=== PATIENT | male | born 1945 | race Caucasian/White ===

== ENCOUNTER 2021-01-25 12:24 | Inpatient (IN) ==
[2021-01-25] MEDS ORDERED: AZITHROMYCIN 500 MG in DEXTROSE 5% IN WATER 250 ML IV ONE (12:36)
[2021-01-25] MEDS ORDERED: cefTRIAXone 1 GM in DEXTROSE 5% IN WATER 50 ML IV SCH ×3 (12:45→16:15)
--- NOTE | 2021-01-25 12:47 | Emergency Department Note ---
SOB HPI General Chief Complaint: Recheck/Abnormal Lab/Rx Stated Complaint: low O2 Sat Time Seen by Provider: 01/25/21 12:28 Mode of arrival: ambulatory Limitations: no limitations History of Present Illness HPI Narrative: 75-year-old male was sent over from urgent care clinic after he presented with 6-day history of fevers chills cough productive of clear sputum and shortness of breath. Was found to have a oxygen saturation in the low to mid 80s and was sent to the emergency department by private vehicle. She denies any chest pain. Denies any history of chronic lung disease. He has had fevers and chills up to about 103. His had upper respiratory type infection as well last week but hers resolved quickly. Patient denies tobacco abuse. Thromboembolism. Denies any loss of taste or smell or any recent travel or contact with anybody with confirmed COVID-19. Patient did not get the COVID-19 vaccine. He has history of hypertension hyperlipidemia and diabetes. Loose stools. Also has a history of prostate cancer status post resection. Related Data Home Medications Medication Instructions Recorded Confirmed cholecalciferol (vitamin D3) 125 250 mcg PO QDAY cap 03/12/20 01/25/21 mcg (5,000 unit) capsule Previous Rx's Medication Instructions Recorded imipramine HCl 50 mg tablet 50 mg PO BID #180 tab 11/19/20 losartan 100 mg tablet 100 mg PO QDAY #90 tab 12/03/20 amlodipine 5 mg tablet See Rx Instructions .ROUTE 12/27/20 .COMPLEX #90 tab carvedilol 25 mg tablet See Rx Instructions .ROUTE 12/27/20 .COMPLEX #180 tab pravastatin 40 mg tablet See Rx Instructions .ROUTE 12/27/20 .COMPLEX #90 tab hydrochlorothiazide 12.5 mg tablet 12.5 mg PO QDAY #90 tab 12/28/20 meloxicam 15 mg tablet 15 mg PO QDAY #90 tab 12/28/20 metformin 500 mg tablet 500 mg PO QDAY #90 tab 12/28/20 omeprazole 40 mg capsule,delayed 40 mg PO QDAY #90 cap 12/28/20 release dutasteride 0.5 mg capsule 0.5 mg PO QDAY #90 cap 01/23/21 Allergies Allergy/AdvReac Type Severity Reaction Status Date / Time No Known Drug Allergies Allergy Verified 01/25/21 11:47 Review of Systems ROS ROS Narrative: Narrative: All systems ED: reviewed and negative except as stated. Constitutional: Reports fever and chills Eyes: Denies vision change Cardiovascular: Denies chest pain Respiratory: Reports shortness of breath and cough Gastrointestinal: Reports diarrhea; Denies abdominal pain and vomiting Genitourinary: Denies dysuria, frequency, urgency and hematuria Musculoskeletal: Denies back pain and joint pain Integumentary: Denies rash Neurological: Denies headache and dizziness Psychiatric: Denies anxiety, suicidal thoughts and homicidal thoughts Endocrine: Denies polydipsia and polyuria Hematological/Lymphatic: Denies easy bleeding and easy bruising PFS Narrative Patient History Narrative: Narrative: Medical/Surgical/Family History All Active Problems (Updated 01/25/21 @ 15:01 by Denis Eden MD) Bilateral pneumonia (Acute) Hypoxia (Acute) History of total right knee replacement (Acute) Hypertension (Chronic) Hyperlipidemia (Chronic) Prediabetes (Acute) Prostate cancer (Chronic) Erectile dysfunction (Chronic) Kidney cysts (Chronic) Arthritis (Chronic) Gross hematuria (Chronic) Medicare annual wellness visit, subsequent (Acute) BPH with obstruction/lower urinary tract symptoms (Acute) Prostate cancer (Acute) BAHMAN (stress urinary incontinence), male (Acute) Urge incontinence (Acute) Hx of vasectomy (Acute) Status post surgery (Acute) Hx of prostate biopsy (Acute) History of left knee replacement (Acute) History of hydrocelectomy (Acute) Bladder trabeculation (Chronic) Medical History Arthritis Bladder trabeculation BPH with obstruction/lower urinary tract symptoms BPH without obstruction/lower urinary tract symptoms Erectile dysfunction Gross hematuria Hyperlipidemia Hypertension Hypoxia Kidney cysts Medicare annual wellness visit, subsequent Prediabetes Prostate cancer Surgical History History of hydrocelectomy History of left knee replacement 08/11/20, revised 09/2020 History of total right knee replacement 2016 Dr. Fenton Hx of prostate biopsy 01/15 and 06/2012--prostate ultrasound and biopsy Hx of vasectomy Status post surgery gastric tumor removal Family History none listed Heart problem Social History Smoking Status: Never smoker Alcohol Intake Frequency: does not drink Substance Use: does not use Exam Narrative Narrative: Constitutional: Awake alert no acute distress obese HEENT: Normocephalic, atraumatic PERRLA, EOMI, oral mucosa moist, pharynx clear, TMs clear bilateral Neck: Supple, no lymphadenopathy, no JVD Lungs: Few scattered rhonchi, breathing unlabored, Cardiac: Regular rate and rhythm, normal distal pulses, GI: Soft nontender nondistended no guarding no rebound Musculoskeletal: No tenderness, no deformities, no edema, full range of motion Neuro: Awake alert, cranial nerves II through XII grossly intact, no focal motor or sensory deficits Psychiatric: Normal mood and affect General Limitations: no limitations Course Consultations Consultation #1: Discussed with hospitalist, Dr. Diaz, who agrees to see patient and admit patient. Time: 15:17 Vital Signs Vital signs: Vital Signs Temperature 97.9 F 01/25/21 12:25 Pulse Rate 63 01/25/21 12:25 Respiratory Rate 18 01/25/21 12:25 Blood Pressure 138/62 01/25/21 12:25 Pulse Oximetry (%) 99 01/25/21 12:25 Temperature 97.9 F 01/25/21 12:25 Pulse Rate 60 01/25/21 15:07 Respiratory Rate 18 01/25/21 15:07 Blood Pressure 119/69 01/25/21 15:07 Pulse Oximetry (%) 88 L 01/25/21 15:08 [facility] MDM Narrative Medical decision making narrative: 75-year-old male with 6-day history of fevers chills cough and shortness of breath. Was seen at [facility] earlier prior to arrival here found to be hypoxic with oxygen saturation mid high 80s. Oxygen saturation here is 91% room air currently. Chest x-ray shows bilateral infiltrates. Basic labs CBC was normal CMP unremarkable, lactate was normal. Patient Covid 19 and influenza swab were both negative. This patient has bilateral infiltrates and was hypoxic chest is consistent with pneumonia was given empiric Rocephin and Zithromax and will be admitted for further evaluation. ED findings and recommendation for admission discussed with the patient who is agreeable. Patient discussed with hospitalist, Dr. Diaz who is agreeable to admit the patient. Lab Data Result diagrams: 01/25/21 13:14 01/25/21 13:14 Labs: Lab Results 01/25/21 01/25/21 01/25/21 Range/Units 13:14 13:14 13:14 WBC 4.9 (4.5-11.0) K/mcL RBC 4.89 (4.50-5.90) M/mcL Hgb 14.7 (13.5-16.5) g/dL Hct 44.6 (41.0-55.0) % MCV 91.2 (80.0-100.0) fL MCH 30.1 (26.0-34.0) pg MCHC 33.0 (31.0-36.0) g/dL RDW 14.2 (11.5-14.5) % Plt Count 161 (140-440) K/mcL MPV 9.5 (7.4-10.4) fL VBG Lactic Acid 0.9 (0.5-2.0) mmol/L Sodium 135 (133-145) mmol/L Potassium 4.7 (3.3-5.1) mmol/L Chloride 99 (96-108) mmol/L Carbon Dioxide 26 (22-30) mmol/L Anion Gap 10.0 (8.0-16.0) BUN 18 (8-23) mg/dL Creatinine 1.2 (0.7-1.2) mg/dL GFR Calculation 59 Glucose 106 H (70-105) mg/dL Calcium 8.4 L (8.6-10.4) mg/dL Total Bilirubin 0.6 (0.1-1.0) mg/dL AST 59 H (<40) U/L ALT 54 H (<40) U/L Alkaline Phosphatase 79 (39-117) U/L Troponin T (<0.03) ng/mL NT-Pro-B Natriuret Pep 166.0 H (<125.0) pg/mL Total Protein 6.8 (5.9-8.4) gm/dL Albumin 3.6 (3.2-5.2) gm/dL Globulin 3.2 (2.2-3.7) gm/dL Albumin/Globulin Ratio 1.1 (1.0-2.3) Procalcitonin (<0.10) ng/mL 01/25/21 01/25/21 Range/Units 13:14 13:14 WBC (4.5-11.0) K/mcL RBC (4.50-5.90) M/mcL Hgb (13.5-16.5) g/dL Hct (41.0-55.0) % MCV (80.0-100.0) fL MCH (26.0-34.0) pg MCHC (31.0-36.0) g/dL RDW (11.5-14.5) % Plt Count (140-440) K/mcL MPV (7.4-10.4) fL VBG Lactic Acid (0.5-2.0) mmol/L Sodium (133-145) mmol/L Potassium (3.3-5.1) mmol/L Chloride (96-108) mmol/L Carbon Dioxide (22-30) mmol/L Anion Gap (8.0-16.0) BUN (8-23) mg/dL Creatinine (0.7-1.2) mg/dL GFR Calculation Glucose (70-105) mg/dL Calcium (8.6-10.4) mg/dL Total Bilirubin (0.1-1.0) mg/dL AST (<40) U/L ALT (<40) U/L Alkaline Phosphatase (39-117) U/L Troponin T < 0.01 (<0.03) ng/mL NT-Pro-B Natriuret Pep (<125.0) pg/mL Total Protein (5.9-8.4) gm/dL Albumin (3.2-5.2) gm/dL Globulin (2.2-3.7) gm/dL Albumin/Globulin Ratio (1.0-2.3) Procalcitonin 0.21 H (<0.10) ng/mL ED POC Tests ED POC Tests: KASANDRA - Influenza A Negative KASANDRA - Influenza B Negative KASANDRA - SARS Antigen Negative EKG Data EKG #1: EKG attestation: Yes I reviewed and interpreted this EKG. and Yes There are no EKG findings of acute coronary syndrome EKG results narrative: EKG performed at 1324 shows sinus rhythm rate of 61 first-degree block, left axis deviation no ectopy normal ST segments Discharge Plan Patient/Caregiver Discharge Instructions Pt seen by [facility]/PA only: No Clinical Impression: Bilateral pneumonia, Hypoxia Patient Disposition: Xfer As Inpt ([facility]) Condition: Fair Follow up with: Cassandra Olson DO [Primary Care Provider] - Prescriptions: No Action imipramine HCl 50 mg tablet 50 mg PO BID Qty: 180 RF: 3 losartan 100 mg tablet 100 mg PO QDAY Qty: 90 RF: 1 pravastatin 40 mg tablet See Rx Instructions .ROUTE .COMPLEX Qty: 90 RF: 2 amlodipine 5 mg tablet See Rx Instructions .ROUTE .COMPLEX Qty: 90 RF: 1 carvedilol 25 mg tablet See Rx Instructions .ROUTE .COMPLEX Qty: 180 RF: 1 metformin 500 mg tablet 500 mg PO QDAY Qty: 90 RF: 0 hydrochlorothiazide 12.5 mg tablet 12.5 mg PO QDAY Qty: 90 RF: 0 meloxicam 15 mg tablet 15 mg PO QDAY Qty: 90 RF: 0 omeprazole 40 mg capsule,delayed release(DR/EC) 40 mg PO QDAY Qty: 90 RF: 1 cholecalciferol (vitamin D3) 125 mcg (5,000 unit) capsule 250 mcg PO QDAY RF: 0 dutasteride 0.5 mg capsule 0.5 mg PO QDAY Qty: 90 RF: 5
--- NOTE | 2021-01-25 13:04 | XRay Report ---
HISTORY: Hypoxia and dyspnea, prostate cancer FINDINGS: There is a random distribution of groundglass alveolar infiltrates in both lungs. Lung volumes are normal. There is no lobar consolidation or pleural effusion. No mass is identified. There is no adenopathy or pleural effusion. The heart size is normal. No prior study is available for comparison. IMPRESSION: Bilateral pneumonia. The pattern is suggestive of Covid Interpreted and Authenticated by: Donnell Crandall 01/25/21
[2021-01-25] MEDS ORDERED: cefTRIAXone 1 GM VIAL ONE (13:13)
[2021-01-25] MEDS ORDERED: ONDANSETRON 4 MG/2 ML VIAL IV ONE (13:39)
[2021-01-25 14:06] LABS: Hematocrit 44.6 % (41.0-55.0); Hemoglobin 14.7 g/dL (13.5-16.5); Mean Cell Volume 91.2 fL (80.0-100.0); Mean Platelet Volume 9.5 fL (7.4-10.4); Platelet Count 161 K/mcL (140-440); RBC 4.89 M/mcL (4.50-5.90); Red Cell Distribution Width 14.2 % (11.5-14.5); WBC 4.9 K/mcL (4.5-11.0)
[2021-01-25 14:37] LABS: ALT/SGPT 54 U/L (<40); AST/SGOT 59 U/L (<40); Albumin 3.6 gm/dL (3.2-5.2); Albumin/Globulin Ratio 1.1 (1.0-2.3); Alkaline Phosphatase 79 U/L (39-117); Bilirubin,Total 0.6 mg/dL (0.1-1.0); Blood Urea Nitrogen 18 mg/dL (8-23); Calcium 8.4 mg/dL (8.6-10.4); Carbon Dioxide 26 mmol/L (22-30); Chloride 99 mmol/L (96-108); Globulin 3.2 gm/dL (2.2-3.7); Glomerular Filtration Rate 59; Glucose 106 mg/dL (70-105)
[2021-01-25] MEDS ORDERED: ONDANSETRON 4 MG/2 ML VIAL IV PRN ×2 (15:44→16:15)
[2021-01-25] MEDS ORDERED: traZODone HCL 50 MG TABLET PO PRN ×2 (15:44→16:15)
[2021-01-25] MEDS ORDERED: ACETAMINOPHEN 325 MG TABLET PO PRN ×2 (15:44→16:15)
[2021-01-25] MEDS ORDERED: AZITHROMYCIN 500 MG in DEXTROSE 5% IN WATER 250 ML IV SCH (15:45)
--- NOTE | 2021-01-25 16:02 | Internal Med History&Physical ---
HPI History of Present Illness Patient information: Note initiated : 01/25/21 at 3:49 pm Service Date, if different from initiated Date: [] Patient: Mayur Elder 75 y/o M admitted on for Low O2 Sat. Chief Complaint: [shortness of breath and cough] History of present illness: Mr. Elder is a 75 year old M GERD, type 2 diabetes mellitus, essential hypertension, mixed dyslipidemia, prostate cancer, presenting with 12 days history of productive cough with clear sputum and, shortness of breath, fever, and chills. There was no prior similar episode. Patient denies any recent travel or sick contact. Patient developed gradual onset, gradually worsening shortness of breath with productive cough with clear sputum, general body weakness, body aches, sore throat, fever and chills. He also has decreased appetite over the past 3 days. No alleviating or exacerbating factors. Due to his symptoms, he presented to our ED today for further evaluations. Vital signs significant for hypoxia with oxygen saturations down to 88 on room air. Rest of the vital signs within normal limits. Labs significant for lack of leukocytosis with WBC 4.9, nilton negative, and procalcitonin elevated at 0.21. Chest x-ray showing bilateral infiltrates with differential diagnosis of Covid pneumonia versus bilateral bacterial pneumonia. Constitutional Constitutional: Present chills, fatigue, fever(s) and weakness; Absent excessive sweating EENT Eyes: Absent blurry vision, change in vision, loss of vision and other visual disturbances Ears: Absent decreased hearing and tinnitus Nose, mouth and throat: Present sore throat; Absent abnormal hearing, dry mouth, headache(s) and nasal congestion Cardiovascular Cardiovascular: Absent chest pain, chest pain at rest, edema, irregular heart rhythm and palpatations Respiratory Respiratory: Present cough and dyspnea; Absent wheezing Gastrointestinal Gastrointestinal: Absent abdominal pain, constipation, diarrhea, nausea and vomiting Musculoskeletal Musculoskeletal: Present muscle cramps; Absent back pain, deformity, limited range of motion, muscle weakness and numbness Integumentary Integumentary: Absent lesions, rash and wounds Neurological Neurological: Absent focal weakness, headache(s) and numbness Psychiatric Psychiatric: Absent anxiety, depression and hallucinations PFSH PFSH All Active Problems (Updated 01/25/21 @ 15:56 by Justen Diaz MD) GERD (gastroesophageal reflux disease) (Acute) Acute respiratory failure with hypoxia (Acute) Bilateral pneumonia (Acute) Hypoxia (Acute) History of total right knee replacement (Acute) Hypertension (Chronic) Hyperlipidemia (Chronic) Prediabetes (Acute) Prostate cancer (Chronic) Erectile dysfunction (Chronic) Kidney cysts (Chronic) Arthritis (Chronic) Gross hematuria (Chronic) Medicare annual wellness visit, subsequent (Acute) BPH with obstruction/lower urinary tract symptoms (Acute) Prostate cancer (Acute) BAHMAN (stress urinary incontinence), male (Acute) Urge incontinence (Acute) Hx of vasectomy (Acute) Status post surgery (Acute) Hx of prostate biopsy (Acute) History of left knee replacement (Acute) History of hydrocelectomy (Acute) Bladder trabeculation (Chronic) Medical History Arthritis Bladder trabeculation BPH with obstruction/lower urinary tract symptoms BPH without obstruction/lower urinary tract symptoms Erectile dysfunction Gross hematuria Hyperlipidemia Hypertension Hypoxia Kidney cysts Medicare annual wellness visit, subsequent Prediabetes Prostate cancer Surgical History History of hydrocelectomy History of left knee replacement 08/11/20, revised 09/2020 History of total right knee replacement 2016 Dr. Fenton Hx of prostate biopsy 01/15 and 06/2012--prostate ultrasound and biopsy Hx of vasectomy Status post surgery gastric tumor removal Family History none listed Heart problem Social History alcohol intake frequency: does not drink substance use type: does not use MEDS/ALLERGIES Home Medications and Allergies Home Medications Medication Instructions Recorded Confirmed Type cholecalciferol (vitamin D3) 125 250 mcg PO QDAY cap 03/12/20 01/25/21 History mcg (5,000 unit) capsule imipramine HCl 50 mg tablet 50 mg PO BID #180 tab 11/19/20 01/25/21 Rx losartan 100 mg tablet 100 mg PO QDAY #90 tab 12/03/20 01/25/21 Rx amlodipine 5 mg tablet See Rx Instructions .ROUTE 12/27/20 01/25/21 Rx .COMPLEX #90 tab carvedilol 25 mg tablet See Rx Instructions .ROUTE 12/27/20 01/25/21 Rx .COMPLEX #180 tab pravastatin 40 mg tablet See Rx Instructions .ROUTE 12/27/20 01/25/21 Rx .COMPLEX #90 tab hydrochlorothiazide 12.5 mg tablet 12.5 mg PO QDAY #90 tab 12/28/20 01/25/21 Rx meloxicam 15 mg tablet 15 mg PO QDAY #90 tab 12/28/20 01/25/21 Rx metformin 500 mg tablet 500 mg PO QDAY #90 tab 12/28/20 01/25/21 Rx omeprazole 40 mg capsule,delayed 40 mg PO QDAY #90 cap 12/28/20 01/25/21 Rx release dutasteride 0.5 mg capsule 0.5 mg PO QDAY #90 cap 01/23/21 01/25/21 Rx Allergies Allergy/AdvReac Type Severity Reaction Status Date / Time No Known Drug Allergies Allergy Verified 01/25/21 11:47 EXAM Constitutional Vitals: Temp Pulse Resp BP Pulse Ox 36.6 C 63 18 114/62 92 01/25/21 12:25 01/25/21 15:42 01/25/21 15:42 01/25/21 15:42 01/25/21 15:42 General appearance: cooperative and no acute distress Head Head exam: Present atraumatic and normocephalic Eye Eye exam: Present EOMI and PERRL ENT ENT exam: Present mucous membranes moist, normal exam and normal external ear exam Additional comments: Nasal cannula in place Neck Neck exam: Present normal inspection; Absent lymphadenopathy, tenderness and thyromegaly Respiratory Respiratory exam: Absent accessory muscle use, respiratory distress and wheezes Cardiovascular Cardiovascular exam: Present normal rate and rhythm; Absent JVD GI/Abdominal GI/Abdominal exam: Present normal bowel sounds and soft; Absent organomegaly and tenderness Rectal Rectal exam: Present deferred Extremities Exam Extremities exam: Present full ROM, normal capillary refill and normal inspection; Absent tenderness Neurological Exam Neurological exam: Present alert, CN II-XII intact and oriented X3; Absent motor sensory deficit Psychiatric Psychiatric exam: Present normal affect and normal mood; Absent anxious and depressed Skin Skin exam: Present dry and intact DATA Data Completed and Pending Labs: Labs from last 24 hours 01/25/21 01/25/21 01/25/21 13:14 13:14 13:14 WBC RBC Hgb Hct MCV MCH MCHC RDW Plt Count MPV Platelet Estimate RBC Morphology VBG Lactic Acid 0.9 Sodium Potassium Chloride Carbon Dioxide Anion Gap BUN Creatinine GFR Calculation Glucose Calcium Total Bilirubin AST ALT Alkaline Phosphatase Troponin T < 0.01 NT-Pro-B Natriuret Pep Total Protein Albumin Globulin Albumin/Globulin Ratio Procalcitonin 0.21 H 01/25/21 01/25/21 13:14 13:14 WBC 4.9 RBC 4.89 Hgb 14.7 Hct 44.6 MCV 91.2 MCH 30.1 MCHC 33.0 RDW 14.2 Plt Count 161 MPV 9.5 Platelet Estimate Pending RBC Morphology Pending VBG Lactic Acid Sodium 135 Potassium 4.7 Chloride 99 Carbon Dioxide 26 Anion Gap 10.0 BUN 18 Creatinine 1.2 GFR Calculation 59 Glucose 106 H Calcium 8.4 L Total Bilirubin 0.6 AST 59 H ALT 54 H Alkaline Phosphatase 79 Troponin T NT-Pro-B Natriuret Pep 166.0 H Total Protein 6.8 Albumin 3.6 Globulin 3.2 Albumin/Globulin Ratio 1.1 Procalcitonin A/P Assessment and plan (1) Hypertension: Status: Chronic (2) Hyperlipidemia: Status: Chronic (3) Prediabetes: Status: Acute (4) Bilateral pneumonia: Status: Acute (5) Acute respiratory failure with hypoxia: Status: Acute (6) GERD (gastroesophageal reflux disease): Status: Acute Narrative A/P Narrative: 1. Acute respiratory failure with hypoxia: DDx: community acquired pneumonia vs CoVID pneumonia vs influenza Admit to inpatient med surg Supplemental oxygen titrate to achieve oxygen saturation >=92% Blood culture X2 Serial lactic acid CoVID confirmatory test Influenza A and B screening Rapid strep test Isolation: contact and airborne cbc w/ auto diff in the AM to trend WBC Rocephin Zithromax Tylenol PRN fever DuoNEB NEB q4hr PRN wheezing or SOB Robitussin DM PRN cough 2. Prediabetes: HgA1c 6.1 Hold metformin Low dose sliding scale insulin AC HS Accu Chek AC HS Hypoglycemia protocol Diabetic diet 3. Essential HTN: Resume home regimen of oral antihypertensives 4. Mixed dyslipidemia: Resume statin therapy 5. GERD: Continue oral PPI from home regimen Time Spent With Patient Time: Total time spent is greater than 50% in coordination of care (as documented) at patient's floor/unit and/or counseling patient:
[2021-01-25] MEDS ORDERED: IPRATROPIUM/ALBUTEROL 3 ML AMPUL.NEB NEB PRN (16:15)
[2021-01-25] MEDS ORDERED: guaiFENesin/DEXTROMETHORPHAN ORAL SOL PO PRN (16:15)
[2021-01-25] MEDS ORDERED: DEXTROSE 31 GM ORAL.SUSP PO PRN (16:15)
[2021-01-25] MEDS ORDERED: DEXTROSE 50% 50 ML VIAL IV PRN (16:15)
[2021-01-25 16:18] LABS: Band Neutrophils % 8 % (0-10); Lymphocytes % 9 % (15-49); Monocytes % (Manual) 4 % (1-12); Platelet Estimate NORMAL (Normal); RBC Morphology NORMAL (Normal); Segmented Neutrophils % 79 % (38-78)
[2021-01-25] MEDS: INSULIN LISPRO 1 UNIT/0.01 ML UNIT SQ SCH ×2 (17:07→20:48)
[2021-01-25] MEDS ORDERED: REMDESIVIR 200 MG in 0.9 % SODIUM CHLORIDE 250 ML IV ONE (17:09)
[2021-01-25] MEDS: DOCUSATE SODIUM 100 MG CAPSULE PO SCH (20:18)
[2021-01-25] MEDS: SENNOSIDES 1 TABLET PO SCH (20:18)
[2021-01-25] MEDS: ENOXAPARIN 120 MG/0.8 ML SYRINGE SQ SCH (20:48)
[2021-01-25] MEDS: 0.9 % SODIUM CHLORIDE 10 ML SYRINGE IV SCH (20:48)
[2021-01-25] MEDS ORDERED: DOCUSATE SODIUM 100 MG CAPSULE PO SCH (21:00)
[2021-01-25] MEDS ORDERED: SENNOSIDES 1 TABLET PO SCH (21:00)
[2021-01-25] MEDS ORDERED: 0.9 % SODIUM CHLORIDE 10 ML SYRINGE IV SCH (22:00)
[2021-01-26] MEDS: ACETAMINOPHEN 1,000 MG/100 ML BAG IV PRN ×2 (02:31→13:52)
[2021-01-26] MEDS: 0.9 % SODIUM CHLORIDE 10 ML SYRINGE IV SCH ×4 (02:32→21:07)
[2021-01-26] MEDS: INSULIN LISPRO 1 UNIT/0.01 ML UNIT SQ SCH ×4 (06:42→21:44)
[2021-01-26] MEDS: FUROSEMIDE 20 MG/2 ML VIAL IV SCH ×2 (06:42→16:27)
[2021-01-26 09:00] LABS: INR 0.9 (0.9-1.1); Prothrombin Time 12.6 sec (11.9-14.5)
[2021-01-26] MEDS ORDERED: ENOXAPARIN 30 MG/0.3 ML SYRINGE SQ SCH ×2 (09:00)
[2021-01-26 09:03] LABS: Basophils # (Auto) 0.01 K/mcL (0.00-0.20); Basophils % (Auto) 0.2 % (0.0-2.0); Eosinophils # (Auto) 0 K/mcL (0.00-0.70); Eosinophils % (Auto) 0 % (0.0-7.0); Hematocrit 45.6 % (41.0-55.0); Hemoglobin 14.7 g/dL (13.5-16.5); Lymphocytes # (Auto) 1.09 K/mcL (1.50-4.80); Lymphocytes % (Auto) 20.6 % (15.0-49.0); Mean Cell Volume 92.9 fL (80.0-100.0); Mean Corpuscular HGB Conc 32.2 g/dL (31.0-36.0); Mean Platelet Volume 9.6 fL (7.4-10.4); Monocytes # (Auto) 0.18 K/mcL (0.10-0.90); Monocytes % (Auto) 3.4 % (1.0-12.0); Neutrophils % (Auto) 75.8 % (38.0-78.0); Platelet Count 167 K/mcL (140-440); RBC 4.91 M/mcL (4.50-5.90); Red Cell Distribution Width 14.6 % (11.5-14.5); WBC 5.3 K/mcL (4.5-11.0)
[2021-01-26 09:25] LABS: Blood Urea Nitrogen 16 mg/dL (8-23); Calcium 8.5 mg/dL (8.6-10.4); Carbon Dioxide 27 mmol/L (22-30); Chloride 96 mmol/L (96-108); Glomerular Filtration Rate 65; Glucose 84 mg/dL (70-105)
[2021-01-26 09:36] LABS: Ferritin 941.7 ng/mL (30.0-400.0)
[2021-01-26 09:37] LABS: Lactate Dehydrogenase 548 U/L (135-225)
[2021-01-26] MEDS: DOCUSATE SODIUM 100 MG CAPSULE PO SCH ×2 (09:44→21:08)
[2021-01-26] MEDS: ENOXAPARIN 120 MG/0.8 ML SYRINGE SQ SCH ×2 (09:44→21:42)
[2021-01-26] MEDS: DEXAMETHASONE 10 MG/ML VIAL IV SCH (09:44)
[2021-01-26] MEDS: AZITHROMYCIN 500 MG in DEXTROSE 5% IN WATER 250 ML IV SCH (09:44)
[2021-01-26] MEDS: cefTRIAXone 1 GM VIAL IV SCH (10:33)
--- NOTE | 2021-01-26 11:41 | Internal Med Progress Note ---
SUBJECTIVE Subjective Patient information: Note initiated : 01/26/21 at 11:38 am Service Date, if different from initiated Date: [] Patient: Mauyr Elder 75 y/o M admitted on 01/25/21 for Low O2 Sat. Chief Complaint: [community acquired pneumonia, CoVID pneumonia ] Overnight: Fever with Tmax 38.1. Still on supplemental oxygen up to 5L/min via nasal cannula. Subjective: Denies SOB. c/o nonproductive cough. Denies sputum production or wheezing. Fever with Tmax 38.1. Constitutional Vitals: Vital Signs Temp Pulse Resp BP Pulse Ox 36.9 C 72 18 134/69 92 01/26/21 06:48 01/26/21 06:48 01/26/21 06:48 01/26/21 06:48 01/26/21 06:48 Period Temp Pulse Resp BP Sys/Hanley Pulse Ox Last 24 Hr 36.6 C-39.9 C 60-75 18-26 114-162/62-78 88-99 Intake and Output 01/25/21 01/26/21 01/26/21 21:59 05:59 13:59 Intake Total 500 925 Output Total 400 550 Balance 500 525 -550 Weight 138.346 kg Intake & Output: Intake & Output 01/25/21 01/26/21 01/26/21 21:59 05:59 13:59 Intake Total 500 925 Output Total 400 550 Balance 500 525 -550 Weight 138.346 kg Intake: IV 500 100 Zithromax 500 mg In Dextrose 5% 250 in Water 250 ml @ 250 mls/hr IV ONCE ONE Rx#:[id number] Veklury 200 mg In Sodium 250 Chloride 0.9% 250 ml @ 500 mls/ hr IV ONCE ONE Rx#:[id number] Oral 0 825 Output: Void Amount 400 550 Other: Urine Appearance Clear Clear Urine Color Dark Yellow Light Julia # Voids 2 General appearance: cooperative and no acute distress Head Head exam: Present atraumatic and normocephalic Eye Eye exam: Present EOMI and PERRL ENT ENT exam: Present mucous membranes moist, normal exam and normal external ear exam Additional comments: Nasal cannula in place . Neck Neck exam: Present normal inspection; Absent lymphadenopathy, tenderness and thyromegaly Respiratory Respiratory exam: Absent accessory muscle use, respiratory distress and wheezes Additional comments: Coarse breath sound across all lung doyle. Cardiovascular Cardiovascular exam: Present normal rate and rhythm; Absent JVD GI/Abdominal GI/Abdominal exam: Present normal bowel sounds and soft; Absent organomegaly and tenderness Rectal Rectal exam: Present deferred Extremities Exam Extremities exam: Present full ROM, normal capillary refill and normal inspection; Absent tenderness Neurological Exam Neurological exam: Present alert, CN II-XII intact and oriented X3; Absent motor sensory deficit Psychiatric Psychiatric exam: Present normal affect and normal mood; Absent anxious and depressed Skin Skin exam: Present dry and intact OBJ DATA Labs CBC & Chem 7: 01/26/21 06:35 01/26/21 06:35 Labs: Abnormal Lab Results 01/26/21 01/26/21 01/26/21 06:35 06:35 06:35 RDW Lymph # (Auto) Seg Neutrophils % Lymphocytes % Fibrinogen 584 H D-Dimer 1.27 H Sodium 130 L Anion Gap 7.0 L Glucose Calcium 8.5 L Ferritin 941.7 H AST ALT Lactate Dehydrogenase 548 H C-Reactive Protein 14.80 H NT-Pro-B Natriuret Pep Procalcitonin 01/26/21 01/25/21 01/25/21 06:35 13:14 13:14 RDW 14.6 H Lymph # (Auto) 1.09 L Seg Neutrophils % Lymphocytes % Fibrinogen D-Dimer Sodium Anion Gap Glucose 106 H Calcium 8.4 L Ferritin AST 59 H ALT 54 H Lactate Dehydrogenase C-Reactive Protein NT-Pro-B Natriuret Pep 166.0 H Procalcitonin 0.21 H 01/25/21 13:14 RDW Lymph # (Auto) Seg Neutrophils % 79 H Lymphocytes % 9 L Fibrinogen D-Dimer Sodium Anion Gap Glucose Calcium Ferritin AST ALT Lactate Dehydrogenase C-Reactive Protein NT-Pro-B Natriuret Pep Procalcitonin Meds: Medications Acetaminophen (Acetaminophen 325 Mg Tablet) 650 mg PO Q6HP PRN; Protocol PRN Reason: Per Pain Protocol/Fever > 101 Last Admin: 01/25/21 19:06 Dose: 650 mg Documented by: Albuterol/Ipratropium (Ipratropium/Albuterol 3 Ml Ampul.Neb) 3 ml NEB Q4HP PRN PRN Reason: Shortness Of Breath Last Admin: 01/26/21 00:39 Dose: 3 ml Documented by: Amlodipine Besylate (Amlodipine 5 Mg Tablet) 5 mg PO DAILY [facility] Carvedilol (Carvedilol 12.5 Mg Tablet) 25 mg PO BIDCC [facility] Ceftriaxone Sodium (Ceftriaxone 1 Gm Vial) 1 gm IV Q24H [facility] Last Admin: 01/26/21 10:33 Dose: 1 gm Documented by: Dexamethasone (Dexamethasone 10 Mg/Ml Vial) 6 mg IV DAILY [facility] Last Admin: 01/26/21 09:44 Dose: 6 mg Documented by: Dextrose (Dextrose 50% 50 Ml Vial) 0 ml IV UD PRN PRN Reason: Hypoglycemia Diagnostic Test (Pha) (Accu-Chek 1 Each Strip) 1 each FS ACHS [facility] Last Admin: 01/26/21 06:41 Dose: 1 each Documented by: Docusate Sodium (Docusate Sodium 100 Mg Capsule) 100 mg PO BID [facility] Last Admin: 01/26/21 09:44 Dose: 100 mg Documented by: Dutasteride (Dutasteride 0.5 Mg Capsule) 0.5 mg PO QDAY [facility] Enoxaparin Sodium (Enoxaparin 120 Mg/0.8 Ml Syringe) 120 mg SQ BID [facility] Last Admin: 01/26/21 09:44 Dose: 120 mg Documented by: Furosemide (Furosemide 20 Mg/2 Ml Vial) 20 mg IV BIDD [facility] Last Admin: 01/26/21 06:42 Dose: 20 mg Documented by: Glucose (Dextrose 31 Gm Oral.Susp) 15 gm PO PRN PRN PRN Reason: Hypoglycemia Guaifenesin (Guaifenesin/Dextromethorphan Oral Ailsa) 10 ml PO Q4HP PRN PRN Reason: Cough Hydrochlorothiazide (Hydrochlorothiazide 12.5 Mg Capsule) 12.5 mg PO DAILY [facility] Azithromycin 500 mg/ Dextrose 250 mls @ 250 mls/hr IV Q24H [facility]; Protocol Stop: 01/28/21 10:59 Last Admin: 01/26/21 09:44 Dose: 250 mls/hr Documented by: REMDESIVIR 100 mg/ Sodium (Chloride) 250 mls @ 500 mls/hr IV Q24H [facility] Stop: 01/29/21 16:29 Acetaminophen (Ofirmev) 1,000 mg in 100 mls @ 200 mls/hr IV Q6HP PRN; Protocol PRN Reason: PAIN/FEVER > 101 Last Infusion: 01/26/21 03:40 Dose: Infused Documented by: Imipramine HCl (Imipramine 25 Mg Tablet) 50 mg PO BID [facility] Insulin Human Lispro (Insulin Lispro 1 Unit/0.01 Ml Unit) 0 unit SQ ACHS [facility]; Protocol Last Admin: 01/26/21 06:42 Dose: Not Given Documented by: Losartan Potassium (Losartan 50 Mg Tablet) 100 mg PO DAILY [facility] Meloxicam (Meloxicam 7.5 Mg Tablet) 15 mg PO DAILY [facility] Omeprazole (Omeprazole 20 Mg Capsule) 40 mg PO ACB [facility] Ondansetron HCl (Ondansetron 4 Mg/2 Ml Vial) 4 mg IV Q6HP PRN PRN Reason: Nausea And Vomiting Senna (Sennosides 1 Tablet) 2 tab PO HS [facility] Last Admin: 01/25/21 20:18 Dose: Not Given Documented by: Simvastatin (Simvastatin 20 Mg Tablet) 20 mg PO HS [facility] Sodium Chloride (0.9 % Sodium Chloride 10 Ml Syringe) 10 ml IV Q8 [facility] Last Admin: 01/26/21 04:48 Dose: Not Given Documented by: Trazodone HCl (Trazodone Hcl 50 Mg Tablet) 25 mg PO HSP PRN PRN Reason: Insomnia Vitamin D (Vitamin D3 5,000 Unit Capsule) 10,000 unit PO DAILY [facility] A/P Assessment and plan (1) Hypertension: Status: Chronic (2) Hyperlipidemia: Status: Chronic (3) Prediabetes: Status: Acute (4) Bilateral pneumonia: Status: Acute (5) Acute respiratory failure with hypoxia: Status: Acute (6) GERD (gastroesophageal reflux disease): Status: Acute (7) Acute respiratory failure due to COVID-19: Status: Acute Narrative A/P Narrative: 1. Acute respiratory failure with hypoxia: DDx: community acquired pneumonia vs CoVID pneumonia vs influenza Admit to inpatient med surg Supplemental oxygen titrate to achieve oxygen saturation >=92% Blood culture X2, no growth to date Serial lactic acid CoVID confirmatory test positive Influenza A and B screening Rapid strep test Isolation: contact and airborne cbc w/ auto diff in the AM to trend WBC Rocephin Zithromax Tylenol PRN fever DuoNEB NEB q4hr PRN wheezing or SOB Robitussin DM PRN cough Daily inflammatory markers Remdesivir Lovenox 1mg/kg BID Dexamethasone Lasix 20mg IV BID 2. Prediabetes: HgA1c 6.1 Hold metformin Low dose sliding scale insulin AC HS Accu Chek AC HS Hypoglycemia protocol Diabetic diet 3. Essential HTN: Resume home regimen of oral antihypertensives 4. Mixed dyslipidemia: Resume statin therapy 5. GERD: Continue oral PPI from home regimen Time Spent With Patient Time: Total time spent is greater than 50% in coordination of care (as documented) at patient's floor/unit and/or counseling patient:
[2021-01-26] MEDS ORDERED: cefTRIAXone 1 GM in DEXTROSE 5% IN WATER 50 ML IV SCH (15:45)
[2021-01-26] MEDS: REMDESIVIR 100 MG in 0.9 % SODIUM CHLORIDE 250 ML IV SCH (16:27)
[2021-01-26] MEDS: CARVEDILOL 12.5 MG TABLET PO SCH (16:27)
--- NOTE | 2021-01-26 16:45 | Internal Med Progress Note ---
SUBJECTIVE Subjective Patient information: Note initiated : 01/26/21 at 4:34 pm Service Date, if different from initiated Date: [] Patient: Mayur Elder 75 y/o M admitted on 01/25/21 for Low O2 Sat. Chief Complaint: [] Interval history: 01/26 Overnight: Fever with Tmax 38.1. Still on supplemental oxygen up to 5L/min via nasal cannula. Subjective: Denies SOB. c/o nonproductive cough. Denies sputum production or wheezing. Fever with Tmax 38.1. 01/27 Constitutional Vitals: Vital Signs Temp Pulse Resp BP Pulse Ox 99.4 F H 89 16 127/69 92 01/26/21 16:30 01/26/21 16:30 01/26/21 16:30 01/26/21 16:30 01/26/21 16:30 Period Temp Pulse Resp BP Sys/Hanley Pulse Ox Last 24 Hr 98.5 F-103.8 F 69-89 16-22 125-145/69-78 91-95 Intake and Output 01/26/21 01/26/21 01/26/21 05:59 13:59 21:59 Intake Total 925 250 100 Output Total 400 550 Balance 525 -300 100 Weight 138.346 kg Patient Weight 01/27/21 05:59 Weight 138.346 kg Intake & Output: Intake & Output 01/26/21 01/26/21 01/26/21 05:59 13:59 21:59 Intake Total 925 250 100 Output Total 400 550 Balance 525 -300 100 Weight 138.346 kg Intake: IV 100 250 100 Zithromax 500 mg In Dextrose 5% 250 in Water 250 ml @ 250 mls/hr IV Q24H [facility] Rx#:[id number] Oral 825 Output: Void Amount 400 550 Other: Meal Lunch Percent of Meal Consumed 100% Feeding Ability Independent Urine Appearance Clear Clear Urine Color Dark Yellow Light Julia # Voids 2 Exam: General: Alert, Awake, No acute Distress, obese Eyes/N/T: EOMI, Head/Neck: neck supple, CV: RRR, No murmurs, Pulm: course b/l, no wheezing Abd: soft, nontender, +BS x4 Ext: no clubbing/cyanosis/edema Neuro: Alert, no focal deficits, moves all extremities, Skin: warm/dry OBJ DATA Labs CBC & Chem 7: 01/26/21 06:35 01/26/21 06:35 Labs: Abnormal Lab Results 01/26/21 01/26/21 01/26/21 06:35 06:35 06:35 RDW Lymph # (Auto) Seg Neutrophils % Lymphocytes % Fibrinogen 584 H D-Dimer 1.27 H Sodium 130 L Anion Gap 7.0 L Glucose Calcium 8.5 L Ferritin 941.7 H AST ALT Lactate Dehydrogenase 548 H C-Reactive Protein 14.80 H NT-Pro-B Natriuret Pep Procalcitonin 01/26/21 01/25/21 01/25/21 06:35 13:14 13:14 RDW 14.6 H Lymph # (Auto) 1.09 L Seg Neutrophils % Lymphocytes % Fibrinogen D-Dimer Sodium Anion Gap Glucose 106 H Calcium 8.4 L Ferritin AST 59 H ALT 54 H Lactate Dehydrogenase C-Reactive Protein NT-Pro-B Natriuret Pep 166.0 H Procalcitonin 0.21 H 01/25/21 13:14 RDW Lymph # (Auto) Seg Neutrophils % 79 H Lymphocytes % 9 L Fibrinogen D-Dimer Sodium Anion Gap Glucose Calcium Ferritin AST ALT Lactate Dehydrogenase C-Reactive Protein NT-Pro-B Natriuret Pep Procalcitonin Meds: Medications Acetaminophen (Acetaminophen 325 Mg Tablet) 650 mg PO Q6HP PRN; Protocol PRN Reason: Per Pain Protocol/Fever > 101 Last Admin: 01/25/21 19:06 Dose: 650 mg Documented by: Albuterol/Ipratropium (Ipratropium/Albuterol 3 Ml Ampul.Neb) 3 ml NEB Q4HP PRN PRN Reason: Shortness Of Breath Last Admin: 01/26/21 00:39 Dose: 3 ml Documented by: Amlodipine Besylate (Amlodipine 5 Mg Tablet) 5 mg PO DAILY [facility] Carvedilol (Carvedilol 12.5 Mg Tablet) 25 mg PO BIDCC [facility] Last Admin: 01/26/21 16:27 Dose: 25 mg Documented by: Ceftriaxone Sodium (Ceftriaxone 1 Gm Vial) 1 gm IV Q24H [facility] Last Admin: 01/26/21 10:33 Dose: 1 gm Documented by: Dexamethasone (Dexamethasone 10 Mg/Ml Vial) 6 mg IV DAILY [facility] Last Admin: 01/26/21 09:44 Dose: 6 mg Documented by: Dextrose (Dextrose 50% 50 Ml Vial) 0 ml IV UD PRN PRN Reason: Hypoglycemia Diagnostic Test (Pha) (Accu-Chek 1 Each Strip) 1 each FS ACHS [facility] Last Admin: 01/26/21 12:02 Dose: 1 each Documented by: Docusate Sodium (Docusate Sodium 100 Mg Capsule) 100 mg PO BID [facility] Last Admin: 01/26/21 09:44 Dose: 100 mg Documented by: Dutasteride (Dutasteride 0.5 Mg Capsule) 0.5 mg PO QDAY [facility] Enoxaparin Sodium (Enoxaparin 120 Mg/0.8 Ml Syringe) 120 mg SQ BID [facility] Last Admin: 01/26/21 09:44 Dose: 120 mg Documented by: Furosemide (Furosemide 20 Mg/2 Ml Vial) 20 mg IV BIDD [facility] Last Admin: 01/26/21 16:27 Dose: 20 mg Documented by: Glucose (Dextrose 31 Gm Oral.Susp) 15 gm PO PRN PRN PRN Reason: Hypoglycemia Guaifenesin (Guaifenesin/Dextromethorphan Oral Alisa) 10 ml PO Q4HP PRN PRN Reason: Cough Hydrochlorothiazide (Hydrochlorothiazide 12.5 Mg Capsule) 12.5 mg PO DAILY [facility] Azithromycin 500 mg/ Dextrose 250 mls @ 250 mls/hr IV Q24H [facility]; Protocol Stop: 01/28/21 10:59 Last Infusion: 01/26/21 12:29 Dose: Infused Documented by: REMDESIVIR 100 mg/ Sodium (Chloride) 250 mls @ 500 mls/hr IV Q24H [facility] Stop: 01/29/21 16:29 Last Admin: 01/26/21 16:27 Dose: 500 mls/hr Documented by: Acetaminophen (Ofirmev) 1,000 mg in 100 mls @ 200 mls/hr IV Q6HP PRN; Protocol PRN Reason: PAIN/FEVER > 101 Last Infusion: 01/26/21 14:52 Dose: Infused Documented by: Imipramine HCl (Imipramine 25 Mg Tablet) 50 mg PO BID [facility] Insulin Human Lispro (Insulin Lispro 1 Unit/0.01 Ml Unit) 0 unit SQ ACHS [facility]; Protocol Last Admin: 01/26/21 12:02 Dose: Not Given Documented by: Losartan Potassium (Losartan 50 Mg Tablet) 100 mg PO DAILY [facility] Meloxicam (Meloxicam 7.5 Mg Tablet) 15 mg PO DAILY [facility] Omeprazole (Omeprazole 20 Mg Capsule) 40 mg PO ACB [facility] Ondansetron HCl (Ondansetron 4 Mg/2 Ml Vial) 4 mg IV Q6HP PRN PRN Reason: Nausea And Vomiting Senna (Sennosides 1 Tablet) 2 tab PO HS [facility] Last Admin: 01/25/21 20:18 Dose: Not Given Documented by: Simvastatin (Simvastatin 20 Mg Tablet) 20 mg PO HS [facility] Sodium Chloride (0.9 % Sodium Chloride 10 Ml Syringe) 10 ml IV Q8 [facility] Last Admin: 01/26/21 13:52 Dose: 10 ml Documented by: Trazodone HCl (Trazodone Hcl 50 Mg Tablet) 25 mg PO HSP PRN PRN Reason: Insomnia Vitamin D (Vitamin D3 5,000 Unit Capsule) 10,000 unit PO DAILY [facility] A/P Narrative A/P Narrative: A: *Acute hypoxic respiratory failure: 2/ CoVID PNA -5L NC *COVID PNA: -concern for bacterial, was started on abx *Hyponatremia: is on hctz *Prediabetes: HgA1c 6.1 *Essential HTN/HLD: home med coreg/norvasc/hctz/ARB *GERD: *Obese: *CKD II: *Depression: P: -Remdesivir/Dexamethasone -f/u cxr in AM -wean O2, IS/Acapella -rocephin/Zithromax started on admit given concern for bacterial coinfection -SSI -cont BB/CCB/ARB -d/c hctz for low sodium -pt/ot -ppx: Lovenox BID/home ppi Time Spent With Patient Time: Total time spent is greater than 50% in coordination of care (as documented) at patient's floor/unit and/or counseling patient:
[2021-01-26] MEDS: IMIPRAMINE 25 MG TABLET PO SCH (21:06)
[2021-01-26] MEDS: SENNOSIDES 1 TABLET PO SCH (21:07)
[2021-01-26] MEDS: SIMVASTATIN 20 MG TABLET PO SCH (21:07)
[2021-01-27] MEDS: 0.9 % SODIUM CHLORIDE 10 ML SYRINGE IV SCH ×3 (04:00→21:52)
[2021-01-27] MEDS: FUROSEMIDE 20 MG/2 ML VIAL IV SCH (07:56)
[2021-01-27] MEDS: OMEPRAZOLE 20 MG CAPSULE PO SCH (07:57)
[2021-01-27] MEDS: INSULIN LISPRO 1 UNIT/0.01 ML UNIT SQ SCH ×4 (07:57→21:50)
[2021-01-27] MEDS: CARVEDILOL 12.5 MG TABLET PO SCH ×2 (07:57→17:05)
--- NOTE | 2021-01-27 08:00 | Internal Med Progress Note ---
SUBJECTIVE Subjective Patient information: Note initiated : 01/27/21 at 7:56 am Service Date, if different from initiated Date: [] Patient: Mayur Elder 75 y/o M admitted on 01/25/21 for Low O2 Sat. Chief Complaint: [] Interval history: 01/26 Overnight: Fever with Tmax 38.1. Still on supplemental oxygen up to 5L/min via nasal cannula. Subjective: Denies SOB. c/o nonproductive cough. Denies sputum production or wheezing. Fever with Tmax 38.1. 01/27 Patient feeling better. He started on room air this morning. Has occasional cough. Denies shortness of breath at rest. Afebrile. Review of Systems: denies headache/fever/chills/nausea/vomiting/chest or abdominal pain/diarrhea. Otherwise see above. Constitutional Vitals: Vital Signs Temp Pulse Resp BP Pulse Ox 98.7 F 78 20 121/75 93 01/27/21 07:35 01/27/21 07:35 01/27/21 07:35 01/27/21 07:35 01/27/21 07:35 Period Temp Pulse Resp BP Sys/Hanley Pulse Ox Last 24 Hr 97.3 F-99.7 F 74-89 16-22 118-138/69-82 91-94 Intake and Output 01/26/21 01/27/21 01/27/21 21:59 05:59 13:59 Intake Total 350 300 Output Total 200 Balance 350 100 Weight 137.892 kg Intake & Output: Intake & Output 01/26/21 01/27/21 01/27/21 21:59 05:59 13:59 Intake Total 350 300 Output Total 200 Balance 350 100 Weight 137.892 kg Intake: IV 350 Veklury 100 mg In Sodium 250 Chloride 0.9% 250 ml @ 500 mls/ hr IV Q24H [facility] Rx#:[id number] Oral 300 Output: Void Amount 200 Other: Meal Lunch Percent of Meal Consumed 100% Feeding Ability Independent Urine Appearance Clear Urine Color Pale Exam: General: Alert, Awake, No acute Distress, obese Eyes/N/T: EOMI, Head/Neck: neck supple, CV: RRR, No murmurs, Pulm: clearing b/l, no wheezing/rales Abd: soft, nontender, +BS x4 Ext: no clubbing/cyanosis/edema Neuro: Alert, no focal deficits, moves all extremities, Skin: warm/dry OBJ DATA Labs CBC & Chem 7: 01/26/21 06:35 01/27/21 06:50 Labs: Abnormal Lab Results 01/26/21 01/26/21 01/26/21 06:35 06:35 06:35 RDW Lymph # (Auto) Seg Neutrophils % Lymphocytes % Fibrinogen 584 H D-Dimer 1.27 H Sodium 130 L Anion Gap 7.0 L Glucose Calcium 8.5 L Ferritin 941.7 H AST ALT Lactate Dehydrogenase 548 H C-Reactive Protein 14.80 H NT-Pro-B Natriuret Pep Procalcitonin 01/26/21 01/25/21 01/25/21 06:35 13:14 13:14 RDW 14.6 H Lymph # (Auto) 1.09 L Seg Neutrophils % Lymphocytes % Fibrinogen D-Dimer Sodium Anion Gap Glucose 106 H Calcium 8.4 L Ferritin AST 59 H ALT 54 H Lactate Dehydrogenase C-Reactive Protein NT-Pro-B Natriuret Pep 166.0 H Procalcitonin 0.21 H 01/25/21 13:14 RDW Lymph # (Auto) Seg Neutrophils % 79 H Lymphocytes % 9 L Fibrinogen D-Dimer Sodium Anion Gap Glucose Calcium Ferritin AST ALT Lactate Dehydrogenase C-Reactive Protein NT-Pro-B Natriuret Pep Procalcitonin Meds: Medications Acetaminophen (Acetaminophen 325 Mg Tablet) 650 mg PO Q6HP PRN; Protocol PRN Reason: Per Pain Protocol/Fever > 101 Last Admin: 01/25/21 19:06 Dose: 650 mg Documented by: Albuterol/Ipratropium (Ipratropium/Albuterol 3 Ml Ampul.Neb) 3 ml NEB Q4HP PRN PRN Reason: Shortness Of Breath Last Admin: 01/26/21 00:39 Dose: 3 ml Documented by: Amlodipine Besylate (Amlodipine 5 Mg Tablet) 5 mg PO DAILY [facility] Carvedilol (Carvedilol 12.5 Mg Tablet) 25 mg PO BIDCC [facility] Last Admin: 01/26/21 16:27 Dose: 25 mg Documented by: Ceftriaxone Sodium (Ceftriaxone 1 Gm Vial) 1 gm IV Q24H [facility] Last Admin: 01/26/21 10:33 Dose: 1 gm Documented by: Dexamethasone (Dexamethasone 10 Mg/Ml Vial) 6 mg IV DAILY [facility] Last Admin: 01/26/21 09:44 Dose: 6 mg Documented by: Dextrose (Dextrose 50% 50 Ml Vial) 0 ml IV UD PRN PRN Reason: Hypoglycemia Diagnostic Test (Pha) (Accu-Chek 1 Each Strip) 1 each FS ACHS [facility] Last Admin: 01/26/21 21:05 Dose: 1 each Documented by: Docusate Sodium (Docusate Sodium 100 Mg Capsule) 100 mg PO BID [facility] Last Admin: 01/26/21 21:08 Dose: 100 mg Documented by: Dutasteride (Dutasteride 0.5 Mg Capsule) 0.5 mg PO QDAY [facility] Enoxaparin Sodium (Enoxaparin 120 Mg/0.8 Ml Syringe) 120 mg SQ BID [facility] Last Admin: 01/26/21 21:42 Dose: 120 mg Documented by: Furosemide (Furosemide 20 Mg/2 Ml Vial) 20 mg IV BIDD [facility] Stop: 01/27/21 12:00 Last Admin: 01/26/21 16:27 Dose: 20 mg Documented by: Glucose (Dextrose 31 Gm Oral.Susp) 15 gm PO PRN PRN PRN Reason: Hypoglycemia Guaifenesin (Guaifenesin/Dextromethorphan Oral Alisa) 10 ml PO Q4HP PRN PRN Reason: Cough Azithromycin 500 mg/ Dextrose 250 mls @ 250 mls/hr IV Q24H [facility]; Protocol Stop: 01/28/21 10:59 Last Infusion: 01/26/21 12:29 Dose: Infused Documented by: REMDESIVIR 100 mg/ Sodium (Chloride) 250 mls @ 500 mls/hr IV Q24H [facility] Stop: 01/29/21 16:29 Last Infusion: 01/26/21 18:30 Dose: Infused Documented by: Acetaminophen (Ofirmev) 1,000 mg in 100 mls @ 200 mls/hr IV Q6HP PRN; Protocol PRN Reason: PAIN/FEVER > 101 Last Infusion: 01/26/21 14:52 Dose: Infused Documented by: Imipramine HCl (Imipramine 25 Mg Tablet) 50 mg PO BID [facility] Last Admin: 01/26/21 21:06 Dose: 50 mg Documented by: Insulin Human Lispro (Insulin Lispro 1 Unit/0.01 Ml Unit) 0 unit SQ [facility]; Protocol Last Admin: 01/26/21 21:44 Dose: 3 units Documented by: Losartan Potassium (Losartan 50 Mg Tablet) 100 mg PO DAILY [facility] Omeprazole (Omeprazole 20 Mg Capsule) 40 mg PO ACB [facility] Ondansetron HCl (Ondansetron 4 Mg/2 Ml Vial) 4 mg IV Q6HP PRN PRN Reason: Nausea And Vomiting Senna (Sennosides 1 Tablet) 2 tab PO HS [facility] Last Admin: 01/26/21 21:07 Dose: 2 tab Documented by: Simvastatin (Simvastatin 20 Mg Tablet) 20 mg PO HS [facility] Last Admin: 01/26/21 21:07 Dose: 20 mg Documented by: Sodium Chloride (0.9 % Sodium Chloride 10 Ml Syringe) 10 ml IV Q8 [facility] Last Admin: 01/27/21 04:00 Dose: 10 ml Documented by: Trazodone HCl (Trazodone Hcl 50 Mg Tablet) 25 mg PO HSP PRN PRN Reason: Insomnia Vitamin D (Vitamin D3 5,000 Unit Capsule) 10,000 unit PO DAILY [facility] A/P Narrative A/P Narrative: A: *Acute hypoxic respiratory failure: 2/ CoVID PNA -started on room air this morning while in bed *COVID PNA: -concern for bacterial, was started on abx *Hyponatremia: is on hctz -resolved *Prediabetes: HgA1c 6.1 *Essential HTN/HLD: home med coreg/norvasc/hctz/ARB *GERD: *Obese: *CKD II: *Depression: P: -Remdesivir/Dexamethasone -f/u cxr -wean O2, IS/Acapella -rocephin/Zithromax started on admit given concern for bacterial coinfection -d/c hctz for low sodium -SSI, DM diet -cont BB/CCB/ARB -pt/ot -ppx: Lovenox BID/home ppi Time Spent With Patient Time: Total time spent is greater than 50% in coordination of care (as documented) at patient's floor/unit and/or counseling patient:
[2021-01-27 08:14] LABS: ALT/SGPT 102 U/L (<40); AST/SGOT 109 U/L (<40); Albumin 3.6 gm/dL (3.2-5.2); Alkaline Phosphatase 84 U/L (39-117); Bilirubin,Direct < 0.2 mg/dL (0-0.3); Bilirubin,Total 0.3 mg/dL (0.1-1.0); Blood Urea Nitrogen 19 mg/dL (8-23); Calcium 9.1 mg/dL (8.6-10.4); Carbon Dioxide 29 mmol/L (22-30); Chloride 103 mmol/L (96-108); Globulin 3.5 gm/dL (2.2-3.7); Glomerular Filtration Rate 83; Glucose 145 mg/dL (70-105); Lactate Dehydrogenase 566 U/L (135-225); Phosphorous 3.4 mg/dL (2.5-4.5); Triglycerides 97 mg/dL (<150); Uric Acid 4.8 mg/dL (2.5-8.0)
[2021-01-27] MEDS ORDERED: HYDROCHLOROTHIAZIDE 12.5 MG CAPSULE PO SCH (09:00)
[2021-01-27] MEDS ORDERED: MELOXICAM 7.5 MG TABLET PO SCH (09:00)
[2021-01-27] MEDS ORDERED: LOSARTAN 50 MG TABLET PO SCH (09:00)
[2021-01-27] MEDS: AZITHROMYCIN 500 MG in DEXTROSE 5% IN WATER 250 ML IV SCH (09:30)
[2021-01-27] MEDS: DEXAMETHASONE 10 MG/ML VIAL IV SCH (09:30)
[2021-01-27] MEDS: ENOXAPARIN 120 MG/0.8 ML SYRINGE SQ SCH ×2 (09:31→21:50)
[2021-01-27] MEDS: IMIPRAMINE 25 MG TABLET PO SCH ×2 (09:31→21:51)
[2021-01-27] MEDS: VITAMIN D3 5,000 UNIT CAPSULE PO SCH (09:32)
[2021-01-27] MEDS: DUTASTERIDE 0.5 MG CAPSULE PO SCH (09:32)
[2021-01-27] MEDS: DOCUSATE SODIUM 100 MG CAPSULE PO SCH ×2 (09:32→21:52)
[2021-01-27] MEDS: amLODIPine 5 MG TABLET PO SCH (09:33)
[2021-01-27] MEDS: cefTRIAXone 1 GM VIAL IV SCH (09:36)
--- NOTE | 2021-01-27 10:08 | XRay Report ---
HISTORY: Follow-up Covid pneumonia FINDINGS: There has been significant improvement of the bilateral alveolar infiltrates seen throughout both lungs on 01/25/21. The infiltrates have not yet fully resolved. Lung volume is normal. There is no pleural effusion. No adenopathy is detected. The heart size is normal. IMPRESSION: Improving bilateral pneumonia Interpreted and Authenticated by: Donnell Crandall 01/27/21
--- NOTE | 2021-01-27 13:10 | Discharge Summary ---
Discharge Provider Provider Patient information: Note initiated : 01/27/21 at 1:08 pm Service Date, if different from initiated Date: [] Patient: Mayur Elder 75 y/o M admitted on 01/25/21 for Low O2 Sat. Chief Complaint: [] Date of admission: 01/25/21 16:06 Discharge date: 01/28/21 Primary care physician: Cassandra Olson DO Consults: 01/25/21 Consult to Physician [CONS] Stat Comment: Consulting Provider: Justen Diaz Reason For Exam: Physician to Consult Discharge Meds Discharge Medications Home Medications cholecalciferol (vitamin D3) 125 mcg (5,000 unit) capsule 250 mcg PO QDAY cap 03/12/20 [History Confirmed 01/25/21 Last Taken 01/24/21] imipramine HCl 50 mg tablet 50 mg PO BID #180 tab 11/19/20 [Rx Confirmed 01/25/21 Last Taken 01/24/21] losartan 100 mg tablet 100 mg PO QDAY #90 tab 12/03/20 [Rx Confirmed 01/25/21 Last Taken 01/24/21] metformin 500 mg tablet 500 mg PO QDAY #90 tab 12/28/20 [Rx Confirmed 01/25/21 Last Taken 01/24/21] omeprazole 40 mg capsule,delayed release 40 mg PO QDAY #90 cap 12/28/20 [Rx Confirmed 01/25/21 Last Taken 01/24/21] dutasteride 0.5 mg capsule 0.5 mg PO QDAY #90 cap 01/23/21 [Rx Confirmed 01/25/21 Last Taken 01/24/21] amlodipine [Norvasc] 5 mg PO DAILY 01/25/21 [History Confirmed 01/25/21 Last Taken 01/24/21] carvedilol 25 mg PO BID 01/25/21 [History Confirmed 01/25/21 Last Taken 01/24/21] pravastatin 40 mg PO HS 01/25/21 [History Confirmed 01/25/21 Last Taken 01/24/21] levofloxacin 750 mg PO Q24H #1 tab 01/28/21 [Rx Last Taken Unknown] COURSE Hospital Course Hospital course: History of present illness: Mr. Elder is a 75 year old M GERD, type 2 diabetes mellitus, essential hypertension, mixed dyslipidemia, prostate cancer, presenting with 12 days history of productive cough with clear sputum and, shortness of breath, fever, and chills. There was no prior similar episode. Patient denies any recent travel or sick contact. Patient developed gradual onset, gradually worsening shortness of breath with productive cough with clear sputum, general body weakness, body aches, sore throat, fever and chills. He also has decreased appetite over the past 3 days. No alleviating or exacerbating factors. Due to his symptoms, he presented to our ED today for further evaluations. Vital signs significant for hypoxia with oxygen saturations down to 88 on room air. Rest of the vital signs within normal limits. Labs significant for lack of leukocytosis with WBC 4.9, nilton negative, and procalcitonin elevated at 0.21. Chest x-ray showing bilateral infiltrates with differential diagnosis of Covid pneumonia versus bilateral bacterial pneumonia. Interval history: 01/26 Overnight: Fever with Tmax 38.1. Still on supplemental oxygen up to 5L/min via nasal cannula. Subjective: Denies SOB. c/o nonproductive cough. Denies sputum production or wheezing. Fever with Tmax 38.1. 01/27 Patient feeling better. He started on room air this morning. Has occasional cough. Denies shortness of breath at rest. Afebrile. 01/28 Patient doing well. On room air. Ambulating on room air. LFTs increased after starting remdesivir, will follow up outpatient. A: *Acute hypoxic respiratory failure: 2/ CoVID PNA *COVID PNA: -concern for bacterial, was started on abx *Hyponatremia: is on hctz -resolved *Prediabetes: HgA1c 6.1 *Essential HTN/HLD: home med coreg/norvasc/hctz/ARB *GERD: *Obese: *CKD II: *Depression: *Transaminitis: likey remdesivir Discharge diagnosis: Covid pneumonia and question of bacterial coinfection acute hypoxic respite Secondary discharge diagnosis: Hyponatremia prediabetes hypertension GERD obesity chronic kidney disease depression Time Spent with Patient Time attestation: Total time spent providing and/or coordinating discharge services: Time spent: Greater than 30 minutes EXAM Constitutional Vitals: Temp Pulse Resp BP Pulse Ox 98.0 F 66 18 144/97 93 01/27/21 12:00 01/27/21 12:01/27/21 12:01/27/21 12:00 01/27/21 12:00 Discharge Data Data Completed and Pending Labs on day of discharge: Labs from last 24 hours 01/27/21 01/27/21 01/27/21 06:50 06:50 06:50 D-Dimer 0.62 H Sodium 141 Potassium 5.7 H Chloride 103 Carbon Dioxide 29 Anion Gap 9.0 BUN 19 Creatinine 0.9 GFR Calculation 83 Glucose 145 H Uric Acid 4.8 Calcium 9.1 Phosphorus 3.4 Magnesium 2.2 Ferritin 1251.0 H Total Bilirubin 0.3 Direct Bilirubin < 0.2 GGT 48 AST 109 H ALT 102 H Alkaline Phosphatase 84 Lactate Dehydrogenase 566 H Total Creatine Kinase 344 H C-Reactive Protein 11.80 H Total Protein 7.1 Albumin 3.6 Globulin 3.5 Albumin/Globulin Ratio 1.0 Triglycerides 97 Preliminary micro results at discharge 01/25/21 13:14 Blood Culture - Preliminary Blood 01/25/21 13:10 Blood Culture - Preliminary Blood Discharge Plan Patient/Caregiver Discharge Instructions Activity: increase activity as tolerated Diet: Consistent Carbohydrate Prescriptions: New levofloxacin 750 mg tablet 750 mg PO Q24H Qty: 1 RF: 0 Continued imipramine HCl 50 mg tablet 50 mg PO BID Qty: 180 RF: 3 losartan 100 mg tablet 100 mg PO QDAY Qty: 90 RF: 1 metformin 500 mg tablet 500 mg PO QDAY Qty: 90 RF: 0 omeprazole 40 mg capsule,delayed release(DR/EC) 40 mg PO QDAY Qty: 90 RF: 1 cholecalciferol (vitamin D3) 125 mcg (5,000 unit) capsule 250 mcg PO QDAY RF: 0 carvedilol 25 mg tablet 25 mg PO BID RF: 0 pravastatin 40 mg tablet 40 mg PO HS RF: 0 amlodipine [Norvasc] 5 mg tablet 5 mg PO DAILY RF: 0 dutasteride 0.5 mg capsule 0.5 mg PO QDAY Qty: 90 RF: 5 Discontinued hydrochlorothiazide 12.5 mg tablet 12.5 mg PO QDAY Qty: 90 RF: 0 meloxicam 15 mg tablet 15 mg PO QDAY Qty: 90 RF: 0 Other Ambulatory Orders: Comprehensive Metabolic Panel (Routine) Timeframe: 3 Days Facility: [facility] - Location: Laboratory Ordered By: Grady Ruiz Follow Up Plan Follow up with: Wesley,Cassandra S., DO [Primary Care Provider] - Patient Disposition: Home Health Service Prognosis: Fair Overall status at discharge: patient is progressing back to baseline Discharge Orders: Discharge Order (Routine); Ordered 01/28/21 Ordered By: Grady Ruiz
[2021-01-27] MEDS ORDERED: LABETALOL 5 MG/ML ML IV PRN (14:14)
[2021-01-27] MEDS ORDERED: SODIUM POLYSTYRENE SULFONATE 15 GM/60 ML SUSPENSION PO ONE (14:14)
[2021-01-27] MEDS ORDERED: DEXTROSE 50% 50 ML VIAL IV ONE (14:16)
[2021-01-27] MEDS ORDERED: INSULIN REGULAR, HUMAN 1 UNIT/0.01 ML UNIT IV ONE (14:16)
[2021-01-27] MEDS ORDERED: FUROSEMIDE 20 MG/2 ML VIAL IV ONE (14:16)
[2021-01-27] MEDS: REMDESIVIR 100 MG in 0.9 % SODIUM CHLORIDE 250 ML IV SCH (14:17)
[2021-01-27] MEDS: SENNOSIDES 1 TABLET PO SCH (21:50)
[2021-01-27] MEDS: SIMVASTATIN 20 MG TABLET PO SCH (21:51)
[2021-01-28] MEDS: 0.9 % SODIUM CHLORIDE 10 ML SYRINGE IV SCH (04:01)
[2021-01-28] MEDS: OMEPRAZOLE 20 MG CAPSULE PO SCH (07:27)
[2021-01-28] MEDS: INSULIN LISPRO 1 UNIT/0.01 ML UNIT SQ SCH ×2 (07:32→11:57)
[2021-01-28 07:44] LABS: ALT/SGPT 188 U/L (<40); AST/SGOT 181 U/L (<40); Albumin 3.6 gm/dL (3.2-5.2); Albumin/Globulin Ratio 1.1 (1.0-2.3); Alkaline Phosphatase 85 U/L (39-117); Bilirubin,Direct < 0.2 mg/dL (0-0.3); Bilirubin,Total 0.4 mg/dL (0.1-1.0); Blood Urea Nitrogen 24 mg/dL (8-23); Calcium 8.7 mg/dL (8.6-10.4); Carbon Dioxide 28 mmol/L (22-30); Chloride 100 mmol/L (96-108); Globulin 3.3 gm/dL (2.2-3.7); Glomerular Filtration Rate 65; Glucose 144 mg/dL (70-105); Lactate Dehydrogenase 588 U/L (135-225); Triglycerides 181 mg/dL (<150)
[2021-01-28] MEDS: ENOXAPARIN 120 MG/0.8 ML SYRINGE SQ SCH (08:40)
[2021-01-28] MEDS: DEXAMETHASONE 10 MG/ML VIAL IV SCH (08:40)
[2021-01-28] MEDS: IMIPRAMINE 25 MG TABLET PO SCH (08:42)
[2021-01-28] MEDS: amLODIPine 5 MG TABLET PO SCH (08:42)
[2021-01-28] MEDS: DUTASTERIDE 0.5 MG CAPSULE PO SCH (08:42)
[2021-01-28] MEDS: VITAMIN D3 5,000 UNIT CAPSULE PO SCH (08:42)
[2021-01-28] MEDS: CARVEDILOL 12.5 MG TABLET PO SCH (08:42)
[2021-01-28] MEDS: DOCUSATE SODIUM 100 MG CAPSULE PO SCH (09:00)
[2021-01-28] MEDS ORDERED: LOSARTAN 50 MG TABLET PO SCH (09:00)
[2021-01-28] MEDS: cefTRIAXone 1 GM VIAL IV SCH (10:07)
[2021-01-28] MEDS: AZITHROMYCIN 500 MG in DEXTROSE 5% IN WATER 250 ML IV SCH (11:28)
== END 2021-01-28 13:57 | disposition home health service (06) | DRG 177 ==
LOC: ED 12:24 → MEDSUR 16:05
PROVIDERS: ADMIT Internal Medicine; ATTEND Internal Medicine